=== PATIENT | female | born 1990 | race Caucasian/White ===

== ENCOUNTER 2019-09-30 16:23 | Emergency (ER) | payer OTHER ==
[~2019-09-30] VITALS: Ht 165.1 cm; Wt 109.5 kg
[2019-09-30] MEDS ORDERED: ALBU2.5V8 IH (17:50)
[2019-09-30] MEDS ORDERED: CEPH-264 PO (17:50)
[2019-09-30] MEDS ORDERED: PRED50TA PO (17:50)
--- NOTE | 2019-09-30 17:51 | PHYS DOC ---
Past History Past Medical History: Other Additional Past Medical Histor: intracranial hypertension Past Surgical History: Other Additional Past Surgical Histo: brain stent Alcohol Use: None Drug Use: None Adult General Chief Complaint Chief Complaint: COUGH HPI HPI Patient is a 29 -year-old female who presents with persistent cough for the past 2 weeks presents with rhinorrhea, coarse breath with increased rattling in chest past 3 days. Patient was evaluated by urgent care provider 5 days ago and diagnosed with upper respiratory tract infection and started on Tessalon Perles. Patient denies fever chills, nausea vomiting or sweats. No other acute symptoms or complaints. No history of asthma or chronic respiratory[] Review of Systems Review of Systems Review symptoms as per history of present illness. All other review symptoms are negative. All other systems were reviewed and found to be within normal limits, except as documented in this note. Allergies Allergies Allergies Coded Allergies Type Severity Reaction Last Updated Verified No Known Drug Allergies 09/30/19 No Physical Exam Physical Exam Constitutional: Well developed, well nourished, no acute distress, non-toxic appearance. [] HENT: Normocephalic, atraumatic, bilateral external ears normal, oropharynx moist, no oral exudates, nose normal. [] Eyes: PERRLA, EOMI, conjunctiva normal, no discharge. [] Neck: Normal range of motion, no tenderness, supple, no stridor. [] Cardiovascular:Heart rate regular rhythm, no murmur [] Lungs & Thorax: Bilateral breath sounds clear to auscultation [] Abdomen: Aspirations, musical rhonchi with rales in chest and occasional wheeze.. [] Skin: Warm, dry, no erythema, no rash. [] Back: No tenderness, tenderness. [] Extremities: No tenderness, no edema. [] Neurologic: Alert and oriented X 3, normal motor function, normal sensory function, no focal deficits noted. [] Psychologic: Affect normal, judgement normal, mood normal. [] Current Patient Data Vital Signs Vital Signs Date Time Temp Pulse Resp B/P (MAP) Pulse Ox O2 Delivery O2 Flow Rate FiO2 09/30/19 16:32 98.0 84 18 97 Room Air EKG EKG [] Radiology/Procedures Radiology/Procedures [] Course & Med Decision Making Course & Med Decision Making Pertinent Labs and Imaging studies reviewed. (See chart for details) [Exam consistent with walking pneumonia. Will place on antibiotics, steroids and inhaler and continue Tessalon Perles. Recommendations are to follow-up with PCP for reevaluation. Return precautions reviewed.] Wagner Disclaimer Wagner Disclaimer This electronic medical record was generated, in whole or in part, using a voice recognition dictation system. Departure Departure: Impression: Primary Impression: Walking pneumonia Disposition: HOME, SELF-CARE Condition: STABLE Referrals: PCP,UNKNOWN (PCP) Patient Instructions: Pneumonia, Adult, [id number] Additional Instructions: Please increase fluids, continue Tessalon Perles for cough. Take newly prescribed medications as directed. Follow-up with your PCP in 5-7 days for reevaluation. Return to the ED if new or worsening symptoms. Scripts Cephalexin (KEFLEX) 500 Mg Capsule 1 CAP PO TID for 7 Days, #21 CAP 0 Refills Prov: OMAR MARTIN DO 09/30/19 Albuterol Sulfate (PROAIR HFA INHALER) 8.5 Gm Hfa.aer.ad 2 PUFF IH PRN Q4-6HRS PRN for wheezing for 21 Days, #1 INHALER 0 Refills Prov: OMAR MARTIN DO 09/30/19 Prednisone (PREDNISONE) 50 Mg Tablet 1 TAB PO DAILY, #5 TAB Prov: OMAR MARTIN DO 09/30/19 OMAR MARTIN DO Sep 30, 2019 17:50
[2019-09-30 18:16] VITALS: BP 129/79
== END 2019-09-30 18:00 | disposition home or self-care (01) ==
LOC: ER 16:23
DX: J18.9 Pneumonia, unspecified organism (principal)
CPT/HCPCS: 99283

== ENCOUNTER 2019-10-10 13:18 | Emergency (ER) | payer OTHER ==
[~2019-10-10] VITALS: Ht 165.1 cm; Wt 108.9 kg
[2019-10-10 13:18] VITALS: BP 129/79
[~2019-10-10 13:18] MED LIST: ALBU2.5V8 IH; CEPH-264 PO; PRED50TA PO
[2019-10-10] MEDS ORDERED: ACETAMINOPHEN 500 MG TABLET PO ONE (14:15)
--- NOTE | 2019-10-10 14:24 | PHYS DOC ---
Past History Past Medical History: Pneumonia, Other Additional Past Medical Histor: intracranial hypertension Past Surgical History: (x2), Other Additional Past Surgical Histo: brain stent Smoking: Non-smoker Alcohol Use: None Drug Use: None Adult General Chief Complaint Chief Complaint: PELVIC PAIN HPI HPI Patient is a 29-year-old female presents with 2-3 weeks of waxing and waning pelvic pain. Left greater than right. Nothing makes it better or worse. She denies any vaginal bleeding or discharge. Denies any trauma. She is limited on pain medicine options due to relatively recent brain stent placed, she is on Plavix. She has been unable to get an appointment at [facility]. Symptoms are mild to moderate. Worse on the left side when compared to the right. She is sexually active with one partner, her . He has had a vasectomy. She has had 2 She has a history of this previously with possible ovarian cyst. She needed fertility treatments for her pregnancies, last being 6 years ago.[] Review of Systems Review of Systems Constitutional: Denies fever or chills [] Eyes: Denies change in visual acuity, redness, or eye pain [] HENT: Denies nasal congestion or sore throat [] Respiratory: Denies cough or shortness of breath [] Cardiovascular: No chest pain or palpitations[] GI: Denies abdominal pain, nausea, vomiting, bloody stools or diarrhea [] : Denies dysuria or hematuria, see history of present illness [] Musculoskeletal: Denies back pain or joint pain [] Integument: Denies rash or skin lesions [] Neurologic: Denies headache, focal weakness or sensory changes [] Endocrine: Denies polyuria or polydipsia [] All other systems were reviewed and found to be within normal limits, except as documented in this note. Allergies Allergies Allergies Coded Allergies Type Severity Reaction Last Updated Verified No Known Drug Allergies 09/30/19 No Physical Exam Physical Exam Constitutional: Well developed, well nourished, no acute distress, non-toxic appearance. [] HENT: Normocephalic, atraumatic, bilateral external ears normal, oropharynx moist, no oral exudates, nose normal. [] Eyes: PERRLA, EOMI, conjunctiva normal, no discharge. [] Neck: Normal range of motion, no tenderness, supple, no stridor. [] Cardiovascular:Heart rate regular rhythm, no murmur [] Lungs & Thorax: Bilateral breath sounds clear to auscultation [] Abdomen: Bowel sounds normal, soft, no tenderness, no masses, no pulsatile masses. Pelvic exam performed with food safety specialist: External genitalia, Heathcote's glands, urethra, and : Denies: No lesions, no blood, no abscess. Vaginal vault: physiologic discharge, no blood, no lacerations. Cervix: No cervical motion tenderness, no bleeding,[] Skin: Warm, dry, no erythema, no rash. [] Back: No tenderness, no CVA tenderness. [] Extremities: No tenderness, no cyanosis, no clubbing, ROM intact, no edema. [] Neurologic: Alert and oriented X 3, normal motor function, normal sensory function, no focal deficits noted. [] Psychologic: Affect normal, judgement normal, mood normal. [] Current Patient Data Lab Results Laboratory Tests Test 10/10/19 13:41 POC Urine HCG, Qualitative hcg negative (Negative) EKG EKG [] Radiology/Procedures Radiology/Procedures PROCEDURE: US PELVIS W/TV Examination: Ultrasound pelvis HISTORY: History of pelvic pain COMPARISON: None available FINDINGS: The uterus measures 9.4 x 6.8 x 4.2 cm. Endometrium measures 6.1 mm in thickness. The right ovary measures 2.2 x 2.6 x 2.8 cm. The left ovary measures 2.3 x 2.5 x 3.3 cm. Blood flow identified in the right and left ovaries. Follicles identified in the lateral left ovaries. IMPRESSION: Unremarkable exam.[] Course & Med Decision Making Course & Med Decision Making Pertinent Labs and Imaging studies reviewed. (See chart for details) Emergency department course: Patient arrived, was placed in bed, and tolerated exam well. Pelvic exam was performed with food safety specialist. He was transported to and from radiology with any complications. After return of the lab and imaging findings, these were discussed with the patient who voiced understanding. All questions were answered. She was discharged in improved condition. Medical decision making: There is no evidence of torsion, ectopic , urinary tract infection or pyelonephritis, nor other significant intra- abdominal/pelvic pathology at this time. No evidence of pelvic inflammatory disease.[] Dragon Disclaimer Dragon Disclaimer This electronic medical record was generated, in whole or in part, using a voice recognition dictation system. Departure Departure: Impression: Primary Impression: Pelvic pain Disposition: HOME, SELF-CARE Condition: IMPROVED Referrals: PCPHALEY (PCP) Patient Instructions: Pelvic Pain, Female Additional Instructions: Follow-up with your regular doctor in 2 days. Because you're on blood thinners, avoid anti-inflammatories like ibuprofen and Aleve. Take the pain medicine, as needed, as directed on the packaging. Return to the ER if worsening pain, unable to tolerate liquids, or any other concerns. Scripts Acetaminophen (TYLENOL) 325 Mg Tablet 1-2 TAB PO QID for PAIN, #60 TAB 0 Refills Prov: CHANG TAM DO 10/10/19 Tramadol Hcl (TRAMADOL HCL) 50 Mg Tablet 50 MG PO PRN Q6HRS PRN for PAIN, #20 TAB Prov: CHANG TAM DO 10/10/19 CHANG TAM DO Oct 10, 2019 14:24
[2019-10-10 14:26] LABS: BACTERIA,URINE FEW /HPF (0-FEW); BILIRUBIN,URINE NEG (NEG); CLARITY,URINE CLEAR; COLOR,URINE STRAW; GLUCOSE,URINE NEG (NEG); NITRITE,URINE NEG (NEG); RBC,URINE 0 /HPF (0-2); SQUAMOUS EPITHELIAL CELL,UR OCC /LPF; UROBILINOGEN,URINE 0.2 mg/dL (0.2 mg/dL)
[2019-10-10 14:33] LABS: BASO # 0.1 x10^3/uL (0.0-0.2); BASO % 1 % (0-3); EOS # 0.3 x10^3/uL (0.0-0.7); EOS % 4 % (0-3); HEMATOCRIT 41.2 % (36.0-47.0); HEMOGLOBIN 13.7 g/dL (12.0-15.5); LYMPH # 2.8 x10^3/uL (1.0-4.8); LYMPH % 36 % (24-48); MEAN CORPUSCULAR HEMOGLOBIN 28 pg (25-35); MEAN CORPUSCULAR HGB CONC 33 g/dL (31-37); MEAN CORPUSCULAR VOLUME 85 fL (79-100); MONO # 0.7 x10^3/uL (0.0-1.1); MONO % 9 % (0-9); NEUT % 51 % (31-73); PLATELET COUNT 318 x10^3/uL (140-400); RED BLOOD COUNT 4.84 x10^6/uL (3.50-5.40); RED CELL DISTRIBUTION WIDTH 13.5 % (11.5-14.5); WHITE BLOOD COUNT 7.8 x10^3/uL (4.0-11.0)
[2019-10-10 14:34] LABS: CALCIUM 9.1 mg/dL (8.5-10.1); CREATININE 0.8 mg/dL (0.6-1.0); GFR 85.4; POTASSIUM 4.2 mmol/L (3.5-5.1)
[2019-10-10 14:40] LABS: ALBUMIN 3.9 g/dL (3.4-5.0); ALBUMIN/GLOBULIN RATIO 1.2 (1.0-1.7); TOTAL BILIRUBIN 0.2 mg/dL (0.2-1.0); TOTAL PROTEIN 7.2 g/dL (6.4-8.2)
--- NOTE | 2019-10-10 15:28 | RAD ---
Examination: Ultrasound pelvis HISTORY: History of pelvic pain COMPARISON: None available FINDINGS: The uterus measures 9.4 x 6.8 x 4.2 cm. Endometrium measures 6.1 mm in thickness. The right ovary measures 2.2 x 2.6 x 2.8 cm. The left ovary measures 2.3 x 2.5 x 3.3 cm. Blood flow identified in the right and left ovaries. Follicles identified in the lateral left ovaries. IMPRESSION: Unremarkable exam. . Electronically signed by: Armin Hooker MD (10/10/2019 3:26 PM) [facility]
[2019-10-10] MEDS ORDERED: TRAM50TA PO (15:47)
[2019-10-10] MEDS ORDERED: ACET325T9 PO (15:47)
== END 2019-10-10 15:54 | disposition home or self-care (01) ==
LOC: ER 13:18
DX: R10.2 Pelvic and perineal pain (principal); Z98.890 Other specified postprocedural states
CPT/HCPCS: 36415; 76830; 76856; 80053; 81001; 81025; 85025; 87086; 87491; 87591; 99285; Q0111

== ENCOUNTER 2020-03-26 21:03 | Emergency (ER) | payer OTHER ==
[~2020-03-26] VITALS: Ht 165.1 cm; Wt 113.4 kg
[~2020-03-26 21:03] MED LIST changes: +ACET325T9 PO; +TRAM50TA PO
--- NOTE | 2020-03-26 21:06 | PHYS DOC ---
Past History Past Medical History: Pneumonia, UTI, Other Additional Past Medical Histor: intracranial hypertension Past Surgical History: , Other Additional Past Surgical Histo: brain stent- posterior veinous sinus Smoking: Non-smoker Alcohol Use: None Drug Use: None General Adult HPI: HPI: "..I got burning or discomfort when I urinate.. " " I think I may have a UTI..." Patient is a 29 year old female dependent who presents with above hx and complaints of dysuria past day. Patient denies any vaginal discharge. No history of STDs. Patient recently had period. had a vasectomy. No recent travel outside [facility]. 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 No history of trauma. No history of bad food. 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 Did receive a stent in May 2019 at which resolved the intracranial hypertension. Patient denies any history immunosuppression. Review of Systems: Review of Systems: Constitutional: Denies fever or chills Eyes: Denies change in visual acuity HENT: Denies nasal congestion or sore throat Respiratory: Denies cough or shortness of breath Cardiovascular: Denies chest pain or edema GI: Denies abdominal pain, nausea, vomiting, bloody stools or diarrhea : Complains of dysuria Musculoskeletal: Denies back pain or joint pain Integument: Denies rash Neurologic: Denies headache, focal weakness or sensory changes Endocrine: Denies polyuria or polydipsia Lymphatic: Denies swollen glands Psychiatric: Denies depression or anxiety Heart Score: Risk Factors: Risk Factors: DM, Current or recent (<one month) smoker, HTN, HLP, family history of CAD, obesity. Risk Scores: Score 0 - 3: 2.5% MACE over next 6 weeks - Discharge Home Score 4 - 6: 20.3% MACE over next 6 weeks - Admit for Clinical Observation Score 7 - 10: 72.7% MACE over next 6 weeks - Early Invasive Strategies Family History: Family History: Noncontributory Current Medications: Current Meds: See nursing for home meds Allergies: Allergies: Allergies Coded Allergies Type Severity Reaction Last Updated Verified No Known Drug Allergies 09/30/19 No Physical Exam: PE: Constitutional: Moderate acute distress, non-toxic appearance. [] HENT: Normocephalic, atraumatic, bilateral external ears normal, oropharynx moist, no oral exudates, nose normal. [] Eyes: PERRLA, EOMI, conjunctiva normal, no discharge. Glasses Neck: Normal range of motion, no tenderness, supple, no stridor. [] Cardiovascular:Heart rate regular rhythm, no murmur [] Lungs & Thorax: Bilateral breath sounds clear to auscultation [] Abdomen: Bowel sounds normal, soft, no tenderness, no masses, no pulsatile masses. Obese Skin: Warm, dry, no erythema, no rash. [] Back: No tenderness, no CVA tenderness. [] Extremities: No tenderness, no cyanosis, no clubbing, ROM intact, no edema. [] Neurologic: Alert and oriented X 3, normal motor function, normal sensory function, no focal deficits noted. [] Psychologic: Affect anxious judgement normal, mood normal. [] EKG: EKG: [] Radiology/Procedures: Radiology/Procedures: [] Course & Med Decision Making: Course & Med Decision Making Pertinent Labs and Imaging studies reviewed. (See chart for details) Patient push vitamin C drinks. The patient take Bactrim DS twice a day. Patient follow-up with urine cultures. Patient take Tylenol ibuprofen for pain. Impression: 1. Dysuria 2. UTI [] Dragon Disclaimer: Dragon Disclaimer: This electronic medical record was generated, in whole or in part, using a voice recognition dictation system. Departure Departure: Disposition: HOME/RESIDENCE PRIOR TO ADM Condition: STABLE Referrals: PCP,NO (PCP) Scripts Sulfamethoxazole/Trimethoprim (BACTRIM DS TABLET) 1 Each Tablet 1 TAB PO BID for dysuria for 7 Days, #14 TAB 0 Refills Prov: FERCHO PEDERSON MD 03/26/20 Justification of Admission: Justification of Admission: Justification of Admission Dx: N/A Dragon Disclaimer This chart was dictated in whole or in part using Voice Recognition software in a busy, high-work load, and often noisy Emergency Department environment. It may contain unintended and wholly unrecognized errors or omissions. FERCHO PEDERSON MD Mar 26, 2020 21:06
[2020-03-26 21:21] VITALS: BP 138/86
[2020-03-26 21:39] LABS: BILIRUBIN,URINE NEG (NEG); CLARITY,URINE TURBID; COLOR,URINE YELLOW; GLUCOSE,URINE NEG (NEG)
[2020-03-26] MEDS ORDERED: SULF1TAB24 PO (21:39)
[2020-03-26 21:40] LABS: NITRITE,URINE POS (NEG); UROBILINOGEN,URINE 0.2 mg/dL (0.2 mg/dL)
[2020-03-26 21:44] LABS: BARBITURATES NEG (NEG); BENZODIAZEPINES NEG (NEG); CANNABINOIDS NEG (NEG); COCAINE NEG (NEG); METHADONE NEG (NEG); OPIATES NEG (NEG); PHENCYCLIDINE NEG (NEG)
[2020-03-26 21:45] LABS: RBC,URINE TNTC /HPF (0-2)
[2020-03-26 21:46] LABS: BACTERIA,URINE MANY /HPF (0-FEW); SQUAMOUS EPITHELIAL CELL,UR FEW /LPF
[2020-03-26 21:49] LABS: AMPHETAMINE/METHAMPHETAMINE NEG (NEG)
[2020-03-26] MEDS ORDERED: PHENAZOPYRIDINE 200 MG TABLET. PO ONE (22:00)
[2020-03-26] MEDS ORDERED: IBUPROFEN 600 MG TABLET. PO ONE (22:00)
[2020-03-26] MEDS ORDERED: SMZ/TMP 800/160MG TABLET. PO ONE (22:00)
== END 2020-03-26 22:00 | disposition home or self-care (01) ==
LOC: ER 21:03
DX: N39.0 Urinary tract infection, site not specified (principal); R30.0 Dysuria; I10 Essential (primary) hypertension; Z98.890 Other specified postprocedural states
CPT/HCPCS: 36415; 80307; 81001; 81025; 87086; 99284

== ENCOUNTER 2020-04-06 17:02 | Emergency (ER) | payer OTHER ==
[~2020-04-06] VITALS: Ht 165.1 cm; Wt 113.4 kg
[~2020-04-06 17:02] MED LIST changes: +SULF1TAB24 PO
[2020-04-06 17:06] VITALS: BP 132/83
[2020-04-06] MEDS ORDERED: CEPH-264 PO (17:44)
--- NOTE | 2020-04-06 17:44 | PHYS DOC ---
Past History Past Medical History: Pneumonia, UTI, Other Additional Past Medical Histor: intracranial hypertension Past Surgical History: , Other Additional Past Surgical Histo: brain stent- posterior veinous sinus Smoking: Non-smoker Alcohol Use: None Drug Use: None General Adult EDM: Chief Complaint: PAIN ON URINATION HPI: HPI: 29 year old female presents with report of dysuria and urinary frequency. Samuel had been seen originally in the ED her at [facility] on 03/26/20 for same and diagnosed with UTI and started on 1 week of Bactrim for which patient completed course. Reports symptoms returned after discontinuation of the medication. Samuel has had a similar occurrence of UTI in which she required 2 courses of antibiotic for symptoms to resolve. Denies trauma. Reports she has started to have some back pain. Denies nausea or vomiting. Denies trauma. Denies history of kidney stones. Denies . Reports she is currently sexually active. Denies vaginal discharge. Review of Systems: Review of Systems: Constitutional: Denies fever or chills Eyes: Denies change in visual acuity, redness, or eye pain HENT: Denies nasal congestion or sore throat Respiratory: Denies cough or shortness of breath Cardiovascular: Denies chest pain or palpitations GI: Reports suprapubic abdominal pain; denies nausea, vomiting, or diarrhea : Reports dysuria and urinary frequency Musculoskeletal: Reports back pain; denies joint pain Integument: Denies rash or skin lesions Neurologic: Denies headache, focal weakness or sensory changes Complete systems were reviewed and found to be within normal limits, except as documented in this note. Allergies: Allergies: Allergies Coded Allergies Type Severity Reaction Last Updated Verified No Known Drug Allergies 09/30/19 No Physical Exam: PE: Constitutional: Well developed, well nourished, no acute distress, non-toxic appearance HENT: Normocephalic, atraumatic Eyes: Conjunctiva normal, no discharge Neck: Normal range of motion, supple Lungs & Thorax: Equal chest rise and fall, no respiratory distress Abdomen: Soft, no tenderness, no guarding/rebound tenderness/distention Skin: Warm, dry, no erythema, no rash Back: No tenderness, no CVA tenderness Extremities: No tenderness, ROM intact, no edema Neurologic: Alert and oriented X 3, no focal deficits noted Psychologic: Affect normal, judgement normal Current Patient Data: Labs: Laboratory Tests Test 04/06/20 17:31 POC Urine HCG, Qualitative hcg negative (Negative) Vital Signs: Vital Signs Date Time Temp Pulse Resp B/P (MAP) Pulse Ox O2 Delivery O2 Flow Rate FiO2 04/06/20 17:06 98.3 94 16 132/83 (99) 96 Room Air EKG: EKG: [] Radiology/Procedures: Radiology/Procedures: [] Course & Med Decision Making: Course & Med Decision Making Pertinent Lab studies reviewed. (See chart for details) Patient presents with HPI and physical exam concerning for reoccurrence of UTI. Patient seen previously on 03/26/20 and dx with UTI and placed on 7 day course of Bactrim. UCX noted E.coli with sensativity to Bactrim. Will change antibiotic selection. Keflex therefore initiated. Await new UCX. Patient also educated on pelvic rest until completion of antibiotic therapy. Patient stable for discharge home with outpatient follow-up with PCP. Discussed findings and plan with patient, who acknowledges understanding and agreement. Wagner Disclaimer: Wagner Disclaimer: This electronic medical record was generated, in whole or in part, using a voice recognition dictation system. Departure Departure: Impression: Primary Impression: Urinary tract infection Qualified Codes: N30.01 - Acute cystitis with hematuria Disposition: HOME/RESIDENCE PRIOR TO ADM Condition: STABLE Referrals: ABNER BIANCHI DO (PCP) Patient Instructions: Urinary Tract Infection, [id number] Scripts Cephalexin (KEFLEX) 500 Mg Capsule 1 CAP PO TID for UTI for 7 Days, #21 CAP 0 Refills Prov: WILL STARR DO 04/06/20 Justification of Admission: Justification of Admission: Justification of Admission Dx: N/A WILL STARR DO Apr 06, 2020 17:44
[2020-04-06 17:47] LABS: BILIRUBIN,URINE NEG (NEG); CLARITY,URINE CLEAR; COLOR,URINE YELLOW; GLUCOSE,URINE NEG (NEG); NITRITE,URINE POS (NEG); UROBILINOGEN,URINE 0.2 mg/dL (0.2 mg/dL)
[2020-04-06 17:48] LABS: BACTERIA,URINE FEW /HPF (0-FEW); SQUAMOUS EPITHELIAL CELL,UR FEW /LPF
[2020-04-06] MEDS ORDERED: CEPHALEXIN 250 MG CAPSULE PO ONE (18:30)
== END 2020-04-06 17:56 | disposition home or self-care (01) ==
LOC: ER 17:02
DX: N30.01 Acute cystitis with hematuria (principal); I10 Essential (primary) hypertension; Z87.440 Personal history of urinary (tract) infections; Z98.890 Other specified postprocedural states
CPT/HCPCS: 81001; 81025; 87086; 99283

== ENCOUNTER 2020-07-30 13:21 | Emergency (ER) | payer OTHER ==
[~2020-07-30] VITALS: Ht 165.1 cm; Wt 113.4 kg
[2020-07-30 13:40] VITALS: BP 136/81
--- NOTE | 2020-07-30 14:04 | PHYS DOC ---
Past History Past Medical History: Pneumonia, UTI, Other Additional Past Medical Histor: intracranial hypertension Past Surgical History: , Other Additional Past Surgical Histo: brain stent- posterior veinous sinus Smoking: Non-smoker Alcohol Use: None Drug Use: None General Adult EDM: Chief Complaint: ABDOMINAL PAIN HPI: HPI: 29-year-old female presents with vaginal discharge, lower abdominal discomfort and some mild low back pain. Patient went to urgent care couple days ago put her on antibiotics for UTI. Patient presents today because now she has vaginal discharge with change in odor and she is concerned about bacterial vaginosis. She is sexually active. She is not really worried about an STD. She denies vaginal itching. She denies fever or chills. She has no other complaints at this time. Review of Systems: Review of Systems: Constitutional: Denies fever or chills Eyes: Denies change in visual acuity HENT: Denies nasal congestion or sore throat Respiratory: Denies cough or shortness of breath Cardiovascular: Denies chest pain or edema GI: Abdominal pain. Denies nausea, vomiting, bloody stools or diarrhea : Vaginal discharge Musculoskeletal: Denies back pain or joint pain Integument: Denies rash Neurologic: Denies headache, focal weakness or sensory changes Endocrine: Denies polyuria or polydipsia Lymphatic: Denies swollen glands Psychiatric: Denies depression or anxiety Heart Score: Risk Factors: Risk Factors: DM, Current or recent (<one month) smoker, HTN, HLP, family history of CAD, obesity. Risk Scores: Score 0 - 3: 2.5% MACE over next 6 weeks - Discharge Home Score 4 - 6: 20.3% MACE over next 6 weeks - Admit for Clinical Observation Score 7 - 10: 72.7% MACE over next 6 weeks - Early Invasive Strategies Allergies: Allergies: Allergies Coded Allergies Type Severity Reaction Last Updated Verified No Known Drug Allergies 09/30/19 No Physical Exam: PE: Constitutional: Well developed, well nourished, morbidly obese, no acute distress, non-toxic appearance. [] HENT: Normocephalic, atraumatic, bilateral external ears normal, oropharynx moist, no oral exudates, nose normal. [] Eyes: PERRLA, EOMI, conjunctiva normal, no discharge. [] Neck: Normal range of motion, no tenderness, supple, no stridor. [] Cardiovascular:Heart rate regular rhythm, no murmur [] Lungs & Thorax: Bilateral breath sounds clear to auscultation [] Abdomen: Bowel sounds normal, soft, no tenderness, no masses, no pulsatile masses. [] Skin: Warm, dry, no erythema, no rash. [] Back: No tenderness, no CVA tenderness. [] Extremities: No tenderness, no cyanosis, no clubbing, ROM intact, no edema. [] Neurologic: Alert and oriented X 3, normal motor function, normal sensory function, no focal deficits noted. [] Psychologic: Affect normal, judgement normal, mood normal. : Normal external genital exam, no pain with exam, moderate thickness white discharge. [] Current Patient Data: Labs: Laboratory Tests Test 07/30/20 13:54 POC Urine HCG, Qualitative hcg negative (Negative) Vital Signs: Vital Signs Date Time Temp Pulse Resp B/P (MAP) Pulse Ox O2 Delivery O2 Flow Rate FiO2 07/30/20 13:40 98.1 72 18 136/81 (99) 98 EKG: EKG: [] Radiology/Procedures: Radiology/Procedures: [] Course & Med Decision Making: Course & Med Decision Making Pertinent Labs and Imaging studies reviewed. (See chart for details) The patient's wet prep is negative. Her urinalysis shows positive nitrate but few white blood cells and no bacteria. She is only had 2 days of antibiotics so far. It appears to be working. I will not change her treatment at this point. Her GC chlamydia is pending and we will let her know if it is positive. She is stable for discharge at this time. [] Wagner Disclaimer: Wagner Disclaimer: This electronic medical record was generated, in whole or in part, using a voice recognition dictation system. Departure Departure: Impression: Primary Impression: Abdominal pain Qualified Codes: R10.30 - Lower abdominal pain, unspecified Disposition: 01 DC HOME SELF CARE/HOMELESS Condition: STABLE Referrals: ABNER BIANCHI DO (PCP) Patient Instructions: Abdominal Pain, Women OMAR JOHNSON DO Jul 30, 2020 14:04
[2020-07-30 14:05] LABS: BACTERIA,URINE 0 /HPF (0-FEW); BILIRUBIN,URINE NEG (NEG); CLARITY,URINE CLEAR; COLOR,URINE YELLOW; GLUCOSE,URINE NEG (NEG); NITRITE,URINE POS (NEG); RBC,URINE 0 /HPF (0-2); SQUAMOUS EPITHELIAL CELL,UR FEW /LPF; UROBILINOGEN,URINE 0.2 mg/dL (0.2 mg/dL); WBC,URINE OCC /HPF (0-4)
== END 2020-07-30 14:48 | disposition home or self-care (01) ==
LOC: ER 13:21
DX: R10.30 Lower abdominal pain, unspecified (principal); N89.8 Other specified noninflammatory disorders of vagina; M54.5 Low back pain; G93.2 Benign intracranial hypertension; Z87.440 Personal history of urinary (tract) infections
CPT/HCPCS: 81001; 81025; 87086; 87491; 87591; 99283; Q0111

== ENCOUNTER 2020-10-24 09:12 | Emergency (ER) | payer OTHER ==
[~2020-10-24] VITALS: Ht 165.1 cm; Wt 102.8 kg
--- NOTE | 2020-10-24 10:28 | PHYS DOC ---
Past History Past Medical History: Pneumonia, UTI, Other Additional Past Medical Histor: intracranial hypertension Past Surgical History: , Other Additional Past Surgical Histo: brain stent- posterior veinous sinus Smoking: Non-smoker Alcohol Use: None Drug Use: None General Adult EDM: Chief Complaint: ABDOMINAL PAIN HPI: HPI: Patient is a 22-year-old female coming in for abdominal pain. States she has had left upper quadrant abdominal pain for the past 4 days. States the pain is intermittent and she thought it was "gas". Became concerned and came to emergency department when the pain started to move midline and a little bit to the right side. Denies any nausea, vomiting, diarrhea. Denies any constipation or straining with stools. Last bowel was this morning and was "normal, describes it is smooth. States she has had some bad taste in her mouth and has had a history of reflux. Denies any change in urination. No significant medical history. Has a history of a "brain stent" for idiopathic cranial hypertension. And 2 C-sections. Review of Systems: Review of Systems: All other systems within normal limits except for as noted in the HPI Allergies: Allergies: Allergies Coded Allergies Type Severity Reaction Last Updated Verified No Known Drug Allergies 09/30/19 No Physical Exam: PE: Constitutional: Well developed, well nourished, no acute distress, non-toxic appearance. [] HENT: Normocephalic, atraumatic, bilateral external ears normal, nose normal. [] Eyes: PERRLA, conjunctiva normal, no discharge. [] Neck: No rigidity, supple, no stridor. [] Cardiovascular: Regular rate and rhythm, brisk cap refill [] Lungs & Thorax: Non labored symmetric respirations, no tachypnea or respiratory distress [] Abdomen: Soft, nondistended, mild tenderness in left upper quadrant and epigastric area, negative Peralta's, negative for rebound or guarding. No McBurney's point tenderness Skin: Warm, dry, no erythema, no rash. [] Extremities: No deformities, range of motion grossly intact, no lower extremity edema [] Neurologic: Alert and oriented X 3, no focal deficits noted. [] Psychologic: Affect normal, judgement normal, mood normal. [] Current Patient Data: Labs: Laboratory Tests Test 10/24/20 10:19 POC Urine HCG, Qualitative hcg negative (Negative) Vital Signs: Vital Signs Date Time Temp Pulse Resp B/P (MAP) Pulse Ox O2 Delivery O2 Flow Rate FiO2 10/24/20 09:39 81 16 136/72 (93) 99 Room Air 10/24/20 09:39 97.8 EKG: EKG: [] Radiology/Procedures: Radiology/Procedures: [] Heart Score: Risk Factors: Risk Factors: DM, Current or recent (<one month) smoker, HTN, HLP, family hi story of CAD, obesity. Risk Scores: Score 0 - 3: 2.5% MACE over next 6 weeks - Discharge Home Score 4 - 6: 20.3% MACE over next 6 weeks - Admit for Clinical Observation Score 7 - 10: 72.7% MACE over next 6 weeks - Early Invasive Strategies Course & Med Decision Making: Course & Med Decision Making Labs unremarkable and pain completely relieved with GI cocktail. Discussed with patient's symptoms of gastritis and return precautions symptoms are worsening in other parts of abdomen. Discussed we will treat and have her follow-up with primary care in 1 month to assess symptoms and decide if H. pylori testing would be advisable. [] Dragon Disclaimer: Dragon Disclaimer: This electronic medical record was generated, in whole or in part, using a voice recognition dictation system. Departure Departure: Impression: Primary Impression: Gastritis Disposition: 01 DC HOME SELF CARE/HOMELESS Condition: IMPROVED Referrals: ABNER BIANCHI DO (PCP) Patient Instructions: Diet for Gastroesophageal Reflux Disease, Adult Additional Instructions: Take sucralfate as needed but 2 hours after or prior any other medications. Take famotidine twice daily. Scripts Sucralfate (SUCRALFATE) 1 Gm Tablet 1 TAB PO TID PRN for GI SYMPTOMS for 30 Days, #60 TAB 11 Refills Prov: IVAN LOMAX MD 10/24/20 Famotidine (FAMOTIDINE) 20 Mg Tablet 1 TAB PO BID for antacid for 30 Days, #60 TAB 5 Refills Prov: IVAN LOMAX MD 10/24/20 IVAN LOMAX MD Oct 24, 2020 10:27
[2020-10-24] MEDS ORDERED: LIDO:MAALOX 1:1 20 ML SINGLE DOSE. PO ONE (10:30)
[2020-10-24 10:34] LABS: BASO % 1 % (0-3); EOS # 0.1 x10^3/uL (0.0-0.7); EOS % 2 % (0-3); HEMATOCRIT 38.6 % (36.0-47.0); LYMPH # 1.9 x10^3/uL (1.0-4.8); LYMPH % 35 % (24-48); MEAN CORPUSCULAR HEMOGLOBIN 28 pg (25-35); MEAN CORPUSCULAR HGB CONC 34 g/dL (31-37); MEAN CORPUSCULAR VOLUME 84 fL (79-100); MONO # 0.4 x10^3/uL (0.0-1.1); MONO % 7 % (0-9); NEUT # 2.9 x10^3uL (1.8-7.7); NEUT % 55 % (31-73); PLATELET COUNT 300 x10^3/uL (140-400); RED CELL DISTRIBUTION WIDTH 13.8 % (11.5-14.5); WHITE BLOOD COUNT 5.3 x10^3/uL (4.0-11.0)
[2020-10-24 10:38] LABS: CALCIUM 9.5 mg/dL (8.5-10.1); CREATININE 0.8 mg/dL (0.6-1.0); GFR 84.8; POTASSIUM 3.8 mmol/L (3.5-5.1)
[2020-10-24 10:43] LABS: ALBUMIN 4.2 g/dL (3.4-5.0); ALBUMIN/GLOBULIN RATIO 1.1 (1.0-1.7); TOTAL BILIRUBIN 0.3 mg/dL (0.2-1.0); TOTAL PROTEIN 8.2 g/dL (6.4-8.2)
[2020-10-24 11:01] LABS: BILIRUBIN,URINE NEG (NEG); CLARITY,URINE HAZY; COLOR,URINE STRAW; GLUCOSE,URINE NEG (NEG)
[2020-10-24 11:02] LABS: BACTERIA,URINE FEW /HPF (0-FEW); NITRITE,URINE NEG (NEG); SQUAMOUS EPITHELIAL CELL,UR OCC /LPF; UROBILINOGEN,URINE 0.2 mg/dL (0.2 mg/dL)
[2020-10-24 11:55] VITALS: BP 134/70
[2020-10-24] MEDS ORDERED: FAMO20TA5 PO (12:06)
[2020-10-24] MEDS ORDERED: SUCR1TAB PO (12:06)
== END 2020-10-24 12:20 | disposition home or self-care (01) ==
LOC: ER 09:12
DX: K29.70 Gastritis, unspecified, without bleeding (principal); I10 Essential (primary) hypertension; Z87.440 Personal history of urinary (tract) infections; Z98.890 Other specified postprocedural states
CPT/HCPCS: 36415; 80053; 81001; 81025; 83690; 84484; 85025; 87086; 99283

== ENCOUNTER 2020-11-04 10:52 | Emergency (ER) | payer OTHER ==
[~2020-11-04] VITALS: Ht 165.1 cm; Wt 106.0 kg
[~2020-11-04 10:52] MED LIST changes: +FAMO20TA5 PO; +SUCR1TAB PO
[2020-11-04] MEDS ORDERED: LIDO:MAALOX 1:1 20 ML SINGLE DOSE. PO ONE (11:45)
[2020-11-04] MEDS ORDERED: OMEP40CA45 PO (12:05)
--- NOTE | 2020-11-04 12:06 | PHYS DOC ---
Past History Past Medical History: Pneumonia, UTI, Other Additional Past Medical Histor: intracranial hypertension, anti KPB, Past Surgical History: , Other Additional Past Surgical Histo: brain stent- posterior veinous sinus Smoking: Non-smoker Alcohol Use: None Drug Use: None General Adult EDM: Chief Complaint: ABDOMINAL PAIN HPI: HPI: Patient is a 30-year-old female return to emergency department for epigastric pain. Patient was seen 10 days ago and diagnosed with gastritis. Patient states she has been taking her medication as she had some improvement but has not followed up with primary care. Patient states that she is anxious and afraid to eat because she is afraid of getting ulcer, is also nervous that she is going out of town tomorrow. Patient states no symptoms and improvement of previous symptoms with taking famotidine and Carafate. Has been taking Carafate once a day. Also has been having some constipation with small hard bowel movements. Denies any fever, cough, diarrhea. Review of Systems: Review of Systems: All other systems within normal limits except for as noted in the HPI Current Medications: Current Meds: Current Medications Medications (Trade) Dose Ordered Sig/Kailyn Start Time Stop Time Status Last Admin Dose Admin Multi-Ingredient Mouthwash/Gargle (Gi Cocktail) 20 ml 1X ONCE 11/04/20 11:45 11/04/20 11:59 DC Allergies: Allergies: Allergies Coded Allergies Type Severity Reaction Last Updated Verified No Known Drug Allergies 11/04/20 No Physical Exam: PE: Constitutional: Well developed, well nourished, no acute distress, non-toxic appearance. [] HENT: Normocephalic, atraumatic, bilateral external ears normal, nose normal. [] Eyes: PERRLA, conjunctiva normal, no discharge. [] Neck: No rigidity, supple, no stridor. [] Cardiovascular: Regular rate and rhythm, brisk cap refill [] Lungs & Thorax: Non labored symmetric respirations, no tachypnea or respiratory distress [] Abdomen: Soft, nondistended, mild epigastric tenderness, no guarding or rebound. Skin: Warm, dry, no erythema, no rash. [] Extremities: No deformities, range of motion grossly intact, no lower extremity edema [] Neurologic: Alert and oriented X 3, no focal deficits noted. [] Psychologic: Affect normal, judgement normal, mood normal. [] Current Patient Data: Labs: Laboratory Tests Test 11/04/20 11:26 POC Urine HCG, Qualitative hcg negative (Negative) Vital Signs: Vital Signs Date Time Temp Pulse Resp B/P (MAP) Pulse Ox O2 Delivery O2 Flow Rate FiO2 11/04/20 10:57 98.1 96 16 123/80 (94) 99 Room Air EKG: EKG: [] Radiology/Procedures: Radiology/Procedures: [] Heart Score: Risk Factors: Risk Factors: DM, Current or recent (<one month) smoker, HTN, HLP, family history of CAD, obesity. Risk Scores: Score 0 - 3: 2.5% MACE over next 6 weeks - Discharge Home Score 4 - 6: 20.3% MACE over next 6 weeks - Admit for Clinical Observation Score 7 - 10: 72.7% MACE over next 6 weeks - Early Invasive Strategies Course & Med Decision Making: Course & Med Decision Making Counseled patient on diet changes, relieving stress and increasing food intake. We will change famotidine to omeprazole and encouraged to take sucralfate 3 times a day. [] Dragon Disclaimer: Dragon Disclaimer: This electronic medical record was generated, in whole or in part, using a voice recognition dictation system. Departure Departure: Impression: Primary Impression: Gastritis Disposition: 01 DC HOME SELF CARE/HOMELESS Condition: STABLE Referrals: ABNER BIANCHI DO (PCP) Patient Instructions: Gastritis, Adult Scripts Omeprazole (OMEPRAZOLE) 40 Mg Capsule.dr 1 CAP PO DAILY for antacid for 30 Days, #30 CAP 3 Refills Prov: IVAN LOMAX MD 11/04/20 IVAN LOMAX MD Nov 04, 2020 12:06
[2020-11-04 12:40] VITALS: BP 113/63
== END 2020-11-04 12:45 | disposition home or self-care (01) ==
LOC: ER 10:52
DX: K29.70 Gastritis, unspecified, without bleeding (principal); K59.00 Constipation, unspecified; Z87.440 Personal history of urinary (tract) infections; Z98.890 Other specified postprocedural states
CPT/HCPCS: 81025; 99283

== ENCOUNTER 2020-12-04 15:58 | Emergency (ER) | payer OTHER ==
[~2020-12-04] VITALS: Ht 165.1 cm; Wt 106.0 kg
[~2020-12-04 15:58] MED LIST changes: +OMEP40CA45 PO
[2020-12-04] MEDS ORDERED: PANTOPRAZOLE IV 40 MG VIAL. IVP ONE (16:45)
[2020-12-04] MEDS ORDERED: FAMOTIDINE 20 MG/2 ML VIAL IVP ONE (16:45)
[2020-12-04] MEDS ORDERED: IV NORMAL SALINE 1,000ML 1,000 ML IV SCH (16:45)
--- NOTE | 2020-12-04 16:57 | RAD ---
Study: XR ABDOMEN 1V Indication: Upper abdominal pain. Comparison: None. Findings: Nonobstructive bowel gas pattern. Mild amount of well-formed stool within the colon. Small focus of i ncreased density projecting at the mid to upper aspect of the left abdomen. Impression: 1. Nonobstructive bowel gas pattern. Mild colonic stool burden. 2. Small, rounded focus of increased density projecting at the mid to upper left abdomen. The locatio n is indeterminant but a small nephrolithiasis is possible. Electronically signed by: ROBBY CORONADO MD (12/04/2020 4:54 PM) [id number]
[2020-12-04 17:05] LABS: BASO % 0 % (0-3); EOS # 0.1 x10^3/uL (0.0-0.7); EOS % 1 % (0-3); HEMOGLOBIN 12.6 g/dL (12.0-15.5); LYMPH # 2.3 x10^3/uL (1.0-4.8); LYMPH % 21 % (24-48); MEAN CORPUSCULAR HEMOGLOBIN 28 pg (25-35); MEAN CORPUSCULAR HGB CONC 32 g/dL (31-37); MEAN CORPUSCULAR VOLUME 85 fL (79-100); MONO # 0.6 x10^3/uL (0.0-1.1); MONO % 5 % (0-9); NEUT # 7.6 x10^3uL (1.8-7.7); NEUT % 72 % (31-73); PLATELET COUNT 324 x10^3/uL (140-400); RED BLOOD COUNT 4.57 x10^6/uL (3.50-5.40); RED CELL DISTRIBUTION WIDTH 13.7 % (11.5-14.5); WHITE BLOOD COUNT 10.6 x10^3/uL (4.0-11.0)
[2020-12-04 17:18] LABS: BARBITURATES NEG (NEG); BENZODIAZEPINES NEG (NEG); CANNABINOIDS NEG (NEG); COCAINE NEG (NEG); METHADONE NEG (NEG); OPIATES NEG (NEG); PHENCYCLIDINE NEG (NEG)
[2020-12-04 17:19] LABS: CALCIUM 9.3 mg/dL (8.5-10.1); CREATININE 0.7 mg/dL (0.6-1.0); GFR 98.9; POTASSIUM 3.5 mmol/L (3.5-5.1)
[2020-12-04 17:20] LABS: AMPHETAMINE/METHAMPHETAMINE NEG (NEG)
--- NOTE | 2020-12-04 17:20 | PHYS DOC ---
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 Patient was seen here in the ED October 24 and for the same symptoms, no relief with Pepcid and omeprazole. Takes ASA daily 2/2 csf shunt. LMP was 2 weeks ago. Pt starts crying, is "fedup," cannot see GI until December. No FH autoimmune disorders/lupus. Normal brown BM this am. (MICAELA BROOKS DO) Review of Systems: Review of Systems: Constitutional: Denies fever or chills Eyes: Denies change in visual acuity HENT: Denies nasal congestion or sore throat Respiratory: Denies cough or shortness of breath or hemoptysis Cardiovascular: Denies chest tightness, syncope or edema GI: Denies nausea, vomiting, bloody stools or diarrhea : Denies dysuria Musculoskeletal: Denies back pain or joint pain Integument: Denies rash Neurologic: Denies headache, focal weakness or sensory changes Endocrine: Denies polyuria or polydipsia Lymphatic: Denies swollen glands Psychiatric: Denies depression or anxiety (MICAELA BROOKS DO) Current Medications: Current Meds: Current Medications Medications (Trade) Dose Ordered Sig/Kailyn Start Time Stop Time Status Last Admin Dose Admin Famotidine (Pepcid Vial) 20 mg 1X ONCE 12/04/20 16:45 12/04/20 16:46 DC Lorazepam (Ativan Inj) 0.5 mg 1X ONCE 12/04/20 16:45 12/04/20 16:47 DC Pantoprazole Sodium (Protonix Vial) 40 mg 1X ONCE 12/04/20 16:45 12/04/20 16:47 DC Sodium Chloride 1,000 ml @ 1,000 mls/hr Q1H 12/04/20 16:45 12/04/20 17:44 (MICAELA BROOKS DO) Allergies: Allergies: Allergies Coded Allergies Type Severity Reaction Last Updated Verified No Known Drug Allergies 12/04/20 No (MICAELA BROOKS DO) Physical Exam: PE: Constitutional: Well developed, well nourished, no acute distress, non-toxic appearance. HENT: Normocephalic, atraumatic, Eyes: EOMI, conjunctiva normal, no discharge. Neck: Normal range of motion, supple, Cardiovascular: S1/2 present, regular rhythm Lungs & Thorax: Speaking in full sentences, bilateral equal chest rise, no tachypnea or increased work of breathing Abdomen: soft, no reproducible tenderness, "band like" pain over epigastric region/ruq/luq, no peritonitis or guarding Skin: Warm, dry, no erythema, no rash. [] Back: No midline tenderness, no CVA tenderness. [] Extremities: No tenderness, no cyanosis, no lower extremity edema Neurologic: Alert and oriented X 3, normal motor function, normal sensory function, no focal deficits noted. [] Psychologic: Affect normal, judgement normal, mood normal. [] (MICAELA BROOKS DO) Current Patient Data: Labs: Laboratory Tests Test 12/04/20 16:43 POC Urine HCG, Qualitative hcg negative (Negative) Vital Signs: Vital Signs Date Time Temp Pulse Resp B/P (MAP) Pulse Ox O2 Delivery O2 Flow Rate FiO2 12/04/20 16:06 98.3 97 18 124/72 (89) 100 Room Air (MICAELA BROOKS DO) EKG: EKG: [] (MICAELA BROOKS DO) Radiology/Procedures: Radiology/Procedures: IMAGING REPORT Signed PATIENT: DEZ MEHTA ACCOUNT: [id number] : 1990 LOCATION: ER AGE: 30 SEX: F EXAM STATUS: REG ER ORD. PHYSICIAN: MICAELA BROOKS DO REASON: upper abd pain PROCEDURE: KUB Study: XR ABDOMEN 1V Indication: Upper abdominal pain. Comparison: None. Findings: Nonobstructive bowel gas pattern. Mild amount of well-formed stool within the colon. Small focus of increased density projecting at the mid to upper aspect of the left abdomen. Impression: 1. Nonobstructive bowel gas pattern. Mild colonic stool burden. 2. Small, rounded focus of increased density projecting at the mid to upper left abdomen. The location is indeterminant but a small nephrolithiasis is possible. Electronically signed by: ROBBY CORONADO MD (12/04/2020 4:54 PM) [id number] DICTATED AND SIGNED BY: ROBBY CORONADO MD DATE: 12/04/201651 CC: ABNER BIANCHI DO; MICAELA BROOKS DO ~MTH0 0 (MICAELA BROOKS DO) Heart Score: Risk Factors: Risk Factors: DM, Current or recent (<one month) smoker, HTN, HLP, family history of CAD, obesity. Risk Scores: Score 0 - 3: 2.5% MACE over next 6 weeks - Discharge Home Score 4 - 6: 20.3% MACE over next 6 weeks - Admit for Clinical Observation Score 7 - 10: 72.7% MACE over next 6 weeks - Early Invasive Strategies (MICAELA BROOKS DO) Course & Med Decision Making: Course & Med Decision Making Pertinent Labs and Imaging studies reviewed. (See chart for details) Labs, urinalysis and KUB completed-possible left kidney stone on KUB. CT abdom en pelvis pending. Due to shift change patient was signed out to Oncoming physician Dr. Collins for further management/disposition. Suspect DC home with Reglan and GI referral. (MICAELA BROOKS DO) Course & Med Decision Making Patient is a 30-year-old female who presented with abdominal pain. Vital signs not concerning after time in the ED. Patient feeling better. laboratory analysis normal. CT with probable small ovarian cyst and renal calculi nonobstructing. Discussed all findings with patient and advised to follow-up with primary care physician first thing in the morning to set up a follow-up visit as soon as she can. Advised to come back to the ED with new or concerning symptoms. Patient grateful, verbalized understanding and agreed with plan of discharge. (ALBER COLLINS MD) Dragon Disclaimer: Dragon Disclaimer: This electronic medical record was generated, in whole or in part, using a voice recognition dictation system. (MICAELA BROOKS DO) Departure Departure: Referrals: ABNER BIANCHI DO (PCP) MICAELA BROOKS DO Dec 04, 2020 17:20 ALBER COLLINS MD Dec 04, 2020 18:55
[2020-12-04 17:26] LABS: DIRECT BILIRUBIN 0.1 mg/dL (0.0-0.2); TOTAL BILIRUBIN 0.4 mg/dL (0.2-1.0); TOTAL PROTEIN 7.8 g/dL (6.4-8.2)
[2020-12-04 17:26] LABS: CLARITY,URINE CLEAR; COLOR,URINE COLORLESS
[2020-12-04 17:27] LABS: BACTERIA,URINE 0 /HPF (0-FEW); BILIRUBIN,URINE NEG (NEG); GLUCOSE,URINE NEG (NEG); NITRITE,URINE NEG (NEG); RBC,URINE 0 /HPF (0-2); SQUAMOUS EPITHELIAL CELL,UR MOD /LPF; UROBILINOGEN,URINE 0.2 mg/dL (0.2 mg/dL); WBC,URINE 0 /HPF (0-4)
[2020-12-04] MEDS ORDERED: IOHEXOL 300 MG/ML 75 ML VIAL. IV ONE (17:45)
--- NOTE | 2020-12-04 18:04 | EKG ---
[address] [address] Test Date: 2020-12-04 Test Time: 17:32:30 Pat Name: DEZ MEHTA Department: Room: Gender: F Transport Conductor: ZEE : 1990 Requested By: MICAELA BROOKS Order Number: [id number] Reading MD: Measurements Intervals [place] Rate: 74 P: 10 IA: 162 QRS: -11 QRSD: 88 T: 0 QT: 398 QTc: 442 Interpretive Statements SINUS RHYTHM LEFTWARD AXIS OTHERWISE NORMAL ECG RI6.02 No previous ECG available for comparison
--- NOTE | 2020-12-04 18:18 | RAD ---
PQRS Compliance Statement: One or more of the following individualized dose reduction techniques were utilized for this examinat ion: 1. Automated exposure control 2. Adjustment of the mA and/or kV according to patient size 3. Use of iterative reconstruction technique CT ABDOMEN+PELVIS W Clinical Indication: Reason: up[per abd pain / Comparison: None. Technique: Helical CT imaging of the abdomen and pelvis is performed after 61 cc of Omnipaque 300 IV contrast. Oral contrast not administered. Findings: The lung bases are clear. Cardiac size normal. The liver, gallbladder, spleen, pancreas, adrenal glands, and abdominal aorta are normal. Kidneys enhance symmetrically, no hydronephrosis. There is a 2 mm nonobstructing left renal calculus. The stomach is unremarkable. There is no dilated small bowel. The appendix is not seen, no secondary signs of appendicitis. No colon wall thickening is identified. No abdominal adenopathy or free fluid. There are subcentimeter mesenteric lymph nodes. Uterus is anteverted. The urinary bladder is normal. There is a probable functional cyst of the right ovary. There is mild pelvic free fluid. Findings likely physiologic. No acute bone abnormality. IMPRESSION: 1. No acute abdominal or pelvic abnormality. 2. Mild pelvic free fluid. Probable small functional cyst of the right ovary. Findings likely physio logic. 3. Nonobstructing left renal calculus. Electronically signed by: Alfonzo Malin MD (12/04/2020 6:16 PM) [facility]
[2020-12-04 19:20] VITALS: BP 123/74
== END 2020-12-04 19:25 | disposition home or self-care (01) ==
LOC: ER 15:58
DX: R10.11 Right upper quadrant pain (principal); R10.12 Left upper quadrant pain; R10.13 Epigastric pain; Z87.440 Personal history of urinary (tract) infections; Z79.82 Long term (current) use of aspirin
CPT/HCPCS: 36415; 74018; 74177; 80048; 80076; 80307; 81001; 81025; 82550; 83690; 83735; 84484; 85025; 87086; 93005; 96361; 96374; 96375; 99285; C9113; J2060; J3490; J7030; Q9967

== ENCOUNTER 2021-07-17 16:42 | Emergency (ER) | payer OTHER ==
[~2021-07-17] VITALS: Ht 162.6 cm; Wt 106.3 kg
[~2021-07-17 16:42] MED LIST changes: -OMEP40CA45 PO; +OMEP40CA7 PO
[2021-07-17 16:56] VITALS: BP 148/85
--- NOTE | 2021-07-17 17:22 | PHYS DOC ---
Past History Past Medical History: Pneumonia, UTI, Other Additional Past Medical Histor: intracranial hypertension, anti KPB, gastritis (FAUSTINA ESCOTO APRN) Past Surgical History: , Other Additional Past Surgical Histo: brain stent- posterior veinous sinus (FAUSTINA ESCOTO APRN) Smoking: Non-smoker Alcohol Use: None Drug Use: None (FAUSTINA ESCOTO APRN) General Adult EDM: Chief Complaint: PELVIC PAIN HPI: HPI: Patient is a 30-year-old female who presents to the ER for right-sided pelvic pain that started on Friday. Patient describes the pain as a constant pain. She thought it was due to her ovulation as she was in her ovulation window with her last menstrual period being June 29. She states that this is increased pain compared to her normal ovulation pain. She states she has a history of PCOS. She is denies any dysuria but reports urinary frequency. She also denies vaginal discharge, bleeding, odor, concern for STIs or itching. (FAUSTINA ESCOTO APRN) Review of Systems: Review of Systems: 14 body systems of the review of systems have been reviewed. See HPI for pertinent positive and negative responses, otherwise all other systems are negative, nonpertinent or noncontributory (FAUSTINA ESCOTO APRN) Allergies: Allergies: Allergies Coded Allergies Type Severity Reaction Last Updated Verified No Known Drug Allergies 12/04/20 No (FAUSTINA ESCOTO APRN) Physical Exam: PE: Constitutional: Well developed, well nourished, no acute distress, non-toxic appearance. [] HENT: Normocephalic, atraumatic, bilateral external ears normal, oropharynx moist, no oral exudates, nose normal. [] Eyes: PERRL, EOMI, conjunctiva normal, no discharge. [] Neck: Normal range of motion, no tenderness, supple, no stridor. [] Cardiovascular:Heart rate regular rhythm, no murmur [] Lungs & Thorax: Bilateral breath sounds clear to auscultation [] Abdomen: Bowel sounds normal, soft, right-sided pelvic tenderness with palpation, no masses, no pulsatile masses. [] Skin: Warm, dry, no erythema, no rash. [] Back: No tenderness, no CVA tenderness. [] Extremities: No tenderness, no cyanosis, no clubbing, ROM intact, no edema. [] Neurologic: Alert and oriented X 3, normal motor function, normal sensory function, no focal deficits noted. [] Psychologic: Affect normal, judgement normal, mood normal. [] (FAUSTINA ESCOTO APRN) Current Patient Data: Labs: Laboratory Tests Test 07/17/21 16:50 07/17/21 17:17 Urine Collection Type Unknown Urine Color Yellow Urine Clarity Clear Urine pH 7.0 Urine Specific Institute 1.025 Urine Protein Neg Urine Glucose (UA) Neg mg/dL Urine Ketones (Stick) Neg mg/dL Urine Blood Neg Urine Nitrite Neg Urine Bilirubin Neg Urine Urobilinogen Dipstick 0.2 mg/dL Urine Leukocyte Esterase Trace Urine RBC 0 /HPF Urine WBC 1-4 /HPF Urine Squamous Epithelial Cells Few /LPF Urine Bacteria Few /HPF Urine Mucus Slight /LPF Bedside Urine HCG, Qualitative hcg negative Vital Signs: Vital Signs Date Time Temp Pulse Resp B/P (MAP) Pulse Ox O2 Delivery O2 Flow Rate FiO2 07/17/21 16:56 85 18 148/85 (106) 98 (FAUSTINA ESCOTO APRN) EKG: EKG: [] (FAUSTINA ESCOTO APRN) Radiology/Procedures: Radiology/Procedures: []PROCEDURE: PELVIS COMPLETE EXAM: ULTRASOUND PELVIS INDICATION: Right-sided pelvic pain. COMPARISON: CT abdomen/pelvis 12/04/2020; pelvic ultrasound 10/10/2019 TECHNIQUE: Transabdominal sonographic assessment of the pelvis. FINDINGS: The uterus is measured at 9.2 x 6.1 x 4.5 cm. Endometrial thickness of up to 1.2 cm. The right ovary measures 4 x 3.8 x 2.4 cm and the left ovary 2.5 x 2.1 x 1.9 cm. Unremarkable uterine parenchyma. No fluid along the endometrial canal. Doppler flow is maintained to both ovaries. No complex cyst or mass on either side. Small ovarian cyst/dominant follicle on the right measuring up to 1.9 cm. No free pelvic fluid. IMPRESSION: No sonographic abnormality throughout the pelvis to explain reported pain. There is only a small simple appearing right ovarian cyst/dominant follicle and Doppler flow is maintained to both ovaries. Within normal limits endometrial thickness considering patient age. No free pelvic fluid. Electronically signed by: ROBBY CORONADO MD (07/17/2021 5:46 PM) [facility] DICTATED AND SIGNED BY: ROBBY CORONADO MD DATE: 07/17/21 1744 CC: ABNER BIANCHI DO; FAUSTINA ESCOTO APRN ~MTH0 0 (FAUSTINA ESCOTO APRN) Heart Score: C/O Chest Pain: No Risk Factors: Risk Factors: DM, Current or recent (<one month) smoker, HTN, HLP, family history of CAD, obesity. Risk Scores: Score 0 - 3: 2.5% MACE over next 6 weeks - Discharge Home Score 4 - 6: 20.3% MACE over next 6 weeks - Admit for Clinical Observation Score 7 - 10: 72.7% MACE over next 6 weeks - Early Invasive Strategies (FAUSTINA ESCOTO APRN) Course & Med Decision Making: Course & Med Decision Making Pertinent Labs and Imaging studies reviewed. (See chart for details) [] Patient is a 30-year-old female being seen in the ER for right-sided pelvic pain. Urinalysis and test was performed that showed negative hCG, wet prep was negative. UA showed urinary tract infection with trace leuks, white blood cells and few bacteria. Patient will be treated with an antibiotic.. A pelvic exam was performed and gonorrhea chlamydia testing was performed also a wet prep was obtained. An ultrasound was performed that showed no acute fi ndings and good blood flow to both ovaries. Pelvic exam: closed os, mild right and left sided adnexa tenderness, thin yellow vaginal discharge, no odor noted, no CMT. patient advised to follow-up with her primary care provider regarding her ER visit. I discussed with patient all findings and diagnostic testing as well as the need to follow-up with PCP for further evaluation and treatment or return to the ER if any new or worsening symptoms. Strict return precautions were also discussed at length. Patient voiced understanding and agreement with the plan. Patient is hemodynamically stable at the time of disposition. (FAUSTINA ESCOTO APRN) Course & Med Decision Making Did not see or evaluate patient. Did not discuss patient with PIPE TESTER. Agree with PIPE TESTER's work-up and disposition per note. (ALBER COLLINS MD) Dragon Disclaimer: Dragon Disclaimer: This electronic medical record was generated, in whole or in part, using a voice recognition dictation system. (FAUSTINA ESCOTO APRN) Departure Departure: Impression: Primary Impression: Pelvic pain Disposition: HOME / SELF CARE / HOMELESS Condition: GOOD Referrals: ABNER BIANCHI DO (PCP) Patient Instructions: Ovarian Cyst Additional Instructions: You were seen in the ER today for right pelvic pain. Your urinalysis was positive for urinary tract infection and you will be treated with an antibiotic. Please start and finish this antibiotic completely. Please increase your fluids and avoid bladder irritants such as caffeine, alcohol or sugary be verages. Your pelvic ultrasound was negative for any acute findings but she did have a small cyst on your right ovary. You can take Tylenol or ibuprofen for your pain at home. Please follow-up with your DIRECTOR COMMUNICATIONS as needed. If you continue to have worsening of your pain, vaginal bleeding, intractable nausea or vomiting any new or worsening concerns please return to the ER. We tested you in the ER for gonorrhea and chlamydia and you will be notified of those results via telephone in 2 days when they become available. Please abstain from sexual intercourse until you receive these results. EMERGENCY DEPARTMENT GENERAL DISCHARGE INSTRUCTIONS Thank you for coming to [facility] (ED) today and trusting us with you care. We trust that you had a positivie experience in our Emergency Department. If you wish to speak to the department management, you may call the director at [phone]. YOUR FOLLOW UP INSTRUCTIONS ARE FOLLOWS: 1. Do you have a private Doctor? If you do not have a private doctor, please ask for a resource list of physicians or clinics that may be able to assist you with follow up care. 2. The Emergency Physician has interpreted your x-rays. The X-Ray specialist will also review them. If there is a change in the findings, you will be notified in 48 hours when at all possible. 3. A lab test or culture has been done, your results will be reviewed and you will be notified if you need a change in treatment. ADDITIONAL INSTRUCTIONS AND INFORMATION: 1. Your care today has been supervised by a physician who is specially trained in emergency care. Many problems require more than one evaluation for a complete diagnosis and treatment. We recommend that you schedule your follow up appointment as recommended to ensure complete treatment of you illness or injury. If you are unable to obtain follow up care and continue to have a problem, or if your condition worsens, we recommend that you return to the ED. 2. We are not able to safely determine your condition over the phone nor are we able to give sound medical advice over the phone. For these safety reasons, if you call for medical advice we will ask you to come to the ED for further evaluation. 3. If you have any questions regarding these discharge instructions please call the ED at [phone]. SAFETY INFORMATION: In the interest of safety, wellness, and injury prevention; we encourage you to wear your sealbelt, if you smoke; quite smoking, and we encourage family to use a protective helmet for bicycling and other sporting events that present an increased risk for head injury. IF YOUR SYMPTOMS WORSEN OR NEW SYMPTOMS DEVELOP, OR YOU HAVE CONCERNS ABOUT YOUR CONDITION; OR IF YOUR CONDITION WORSENS WHILE YOU ARE WAITING FOR YOUR FOLLOW UP APPOINTMENT; EITHER CONTACT YOUR PRIMARY CARE DOCTOR, THE PHYSICIAN WHOSE NAME AND NUMBER YOU WERE GIVEN, OR RETURN TO THE ED IMMEDIATELY. Scripts Cephalexin (CEPHALEXIN) 500 Mg Tablet 1 TAB PO BID for UTI for 5 Days, #10 TAB 0 Refills Prov: FAUSTINA ESCOTO APRN 07/17/21 FAUSTINA ESCOTO APRN Jul 17, 2021 17:22 ALBER COLLINS MD Jul 17, 2021 20:32
--- NOTE | 2021-07-17 17:49 | RAD ---
EXAM: ULTRASOUND PELVIS INDICATION: Right-sided pelvic pain. COMPARISON: CT abdomen/pelvis 12/04/2020; pelvic ultrasound 10/10/2019 TECHNIQUE: Transabdominal sonographic assessment of the pelvis. FINDINGS: The uterus is measured at 9.2 x 6.1 x 4.5 cm. Endometrial thickness of up to 1.2 cm. The right ovary measures 4 x 3.8 x 2.4 cm and the left ovary 2.5 x 2.1 x 1.9 cm. Unremarkable uterine parenchyma. No fluid along the endometrial canal. Doppler flow is maintained to both ovaries. No complex cyst or mass on either side. Small ovarian cys t/dominant follicle on the right measuring up to 1.9 cm. No free pelvic fluid. IMPRESSION: No sonographic abnormality throughout the pelvis to explain reported pain. There is only a small simp le appearing right ovarian cyst/dominant follicle and Doppler flow is maintained to both ovaries. Wit hin normal limits endometrial thickness considering patient age. No free pelvic fluid. Electronically signed by: ROBBY CORONADO MD (07/17/2021 5:46 PM) [facility]
[2021-07-17 17:57] LABS: COLOR,URINE YELLOW
[2021-07-17 17:58] LABS: BACTERIA,URINE FEW /HPF (0-FEW); BILIRUBIN,URINE NEG (NEG); CLARITY,URINE CLEAR; GLUCOSE,URINE NEG (NEG); NITRITE,URINE NEG (NEG); RBC,URINE 0 /HPF (0-2); SQUAMOUS EPITHELIAL CELL,UR FEW /LPF; UROBILINOGEN,URINE 0.2 mg/dL (0.2 mg/dL)
[2021-07-17] MEDS ORDERED: CEPH500T PO (19:05)
[2021-07-19 18:07] LABS: CHLAMYDIA PROBE Negative (Negative)
== END 2021-07-17 19:09 | disposition home or self-care (01) ==
LOC: ER 16:42
DX: R10.2 Pelvic and perineal pain (principal); Z87.440 Personal history of urinary (tract) infections; Z98.890 Other specified postprocedural states
CPT/HCPCS: 76856; 81001; 81025; 87086; 87491; 87591; 99284; Q0111

== ENCOUNTER 2021-08-20 16:53 | Emergency (ER) | payer OTHER ==
[~2021-08-20] VITALS: Ht 165.1 cm; Wt 107.0 kg
[~2021-08-20 16:53] MED LIST changes: +CEPH500T PO
--- NOTE | 2021-08-20 17:19 | PHYS DOC ---
Past History Past Medical History: Pneumonia, UTI, Other Additional Past Medical Histor: intracranial hypertension, anti KPB, gastritis Past Surgical History: , Other Additional Past Surgical Histo: brain stent- posterior veinous sinus Smoking: Non-smoker Alcohol Use: None Drug Use: None General Adult EDM: Chief Complaint: PELVIC PAIN HPI: HPI: Patient is a 31-year-old female who presents to the emergency department for right pelvic pain that started in June and has been intermittent. She was seen in this emergency department on July 17 and diagnosed with a urinary tract infection. She was noted at that time to have a 1.9 cm cyst on her right ovary. Patient reports that she went to the urgent care last week and they told her that the cyst may have increased in size and if it gets too big and she may need a blood transfusion. Patient states that gave her a panic attack and she has not been able to think about anything else other than maybe needing a blood transfusion and she goes on vacation and is afraid that something will happen while she is out of town. Patient reports that her last menstrual period was July 29. She denies any vaginal discharge, dysuria, urinary urgency, hematuria, vaginal bleeding, nausea, vomiting. Review of Systems: Review of Systems: GI: See HPI : See HPI Musculoskeletal: Denies flank pain Allergies: Allergies: Allergies Coded Allergies Type Severity Reaction Last Updated Verified No Known Drug Allergies 08/20/21 No Physical Exam: PE: Constitutional: Well developed, well nourished, no acute distress, non-toxic appearance. [] HENT: Normocephalic, atraumatic, bilateral external ears normal, oropharynx moist, no oral exudates, nose normal. [] Eyes: PERRL, EOMI, conjunctiva normal, no discharge. [] Neck: Normal range of motion, no stridor Cardiovascular:Heart rate regular rhythm, no murmur [] Lungs & Thorax: Bilateral breath sounds clear to auscultation [] Abdomen: Bowel sounds normal, soft, no tenderness, obese, no masses, no pulsatile masses. [] Skin: Warm, dry, no erythema, no rash. [] Back: No tenderness, no CVA tenderness. [] Extremities: No tenderness, no cyanosis, no clubbing, ROM intact, no edema. [] Neurologic: Alert and oriented X 3, normal motor function, normal sensory function, no focal deficits noted. [] Psychologic: Affect normal, judgement normal, mood normal. [] Current Patient Data: Vital Signs: Vital Signs Date Time Temp Pulse Resp B/P (MAP) Pulse Ox O2 Delivery O2 Flow Rate FiO2 08/20/21 17:09 98.0 88 18 135/80 (98) 98 Room Air EKG: EKG: [] Radiology/Procedures: Radiology/Procedures: []PROCEDURE: US PELVIS W/TV EXAMINATION: US PELVIS W/TV INDICATION: 31 years, Female, right pelvic pain, history of section. COMPARISON: 07/17/2021 TECHNIQUE: Trans abdominal and transvaginal ultrasound of the pelvis was performed with grayscale, spectral, and color doppler imaging. FINDINGS: UTERUS: Position: Anteverted. Measures: 9.3 x 6.8 x 4.0 cm. Uterine/Endometrial Morphology: Unremarkable. Endometrial Thickness: 9.2 mm, normal. RIGHT OVARY/ADNEXA: Measures: 2.8 x 2.0 x 2.2 cm. Right Ovarian Morphology: Follicular changes. Right Ovarian Color And Spectral Doppler Flow: Normal. LEFT OVARY/ADNEXA: Measures: 3.6 x 2.8 x 2.3 cm. Left Ovarian Morphology: There is a 1.8 cm corpus luteal cyst. Left Ovarian Color And Spectral Doppler Flow: Normal. OTHER: Fluid/Cul-De-Sac: Trace amount of pelvic free fluid, likely physiologic. Prominent bilateral parauterine vessels. IMPRESSION: 1. No acute sonographic findings in the pelvis. 2. Prominent bilateral parauterine vessels, nonspecific findings and can be seen in pelvic congestion syndrome in appropriate clinical setting. Electronically signed by: Viraj Corral MD (08/20/2021 6:05 PM) [facility] DICTATED AND SIGNED BY: VIRAJ CORRAL MD DATE: 08/20/21 1800 CC: ABNER BIANCHI DO; FAUSTINA ESCOTO INFORMATION TECH ~MTH0 0 Heart Score: C/O Chest Pain: N/A Risk Factors: Risk Factors: DM, Current or recent (<one month) smoker, HTN, HLP, family history of CAD, obesity. Risk Scores: Score 0 - 3: 2.5% MACE over next 6 weeks - Discharge Home Score 4 - 6: 20.3% MACE over next 6 weeks - Admit for Clinical Observation Score 7 - 10: 72.7% MACE over next 6 weeks - Early Invasive Strategies Course & Med Decision Making: Course & Med Decision Making Pertinent Labs and Imaging studies reviewed. (See chart for details) Patient presents to the emergency department for right-sided pelvic pain. A urinalysis was performed that showed no acute findings. A pelvic ultrasound was performed as patient has a history of a right ovarian cyst. The ultrasound showed no acute findings but did show pelvic congestive syndrome. Patient given education regarding this finding. Advised to follow-up with her primary care provider-given GYROSCOPIC INSTRUMENT MECHANIC follow-up.. Advised to take Tylenol and/or Ibuprofen for pain at home. I discussed with patient all findings and diagnostic testing as well as the need to follow-up with PCP for further evaluation and treatment or return to the ER if any new or worsening symptoms. Strict return precautions were also discussed at length. Patient voiced understanding and agreement with the plan. Patient is hemodynamically stable at the time of disposition. Dragon Disclaimer: DragMusic Messenger (MM) Disclaimer: This electronic medical record was generated, in whole or in part, using a voice recognition dictation system. Departure Departure: Impression: Primary Impression: Pelvic pain Disposition: HOME / SELF CARE / HOMELESS Condition: GOOD Referrals: ABNER BIANCHI DO (PCP) WILL CANSECO MD Patient Instructions: Pelvic Pain, Female Additional Instructions: You were seen in the emergency department for right-sided pelvic pain. Your urinalysis showed no acute findings. Your ultrasound did show that you had a cyst on your left ovary that is 1.8 cm however the cyst that was on your right ovary is no longer there. The radiologist read your ultrasound as having dilated veins in your pelvis which may indicate pelvic congestive syndrome which is a condition that causes chronic pelvic pain. This should be evaluated by a GYROSCOPIC INSTRUMENT MECHANIC but is very common. I would advise you to follow-up with an GYROSCOPIC INSTRUMENT MECHANIC regarding this issue. You were given a referral to Dr. Canseco who is the GYROSCOPIC INSTRUMENT MECHANIC at [facility] but if you already have an GYROSCOPIC INSTRUMENT MECHANIC you can follow-up with them. You can take Tylenol and/or ibuprofen for your pain. Return to the emergency department if you develop worsening of your pain, intractable nausea or vomiting, high fevers refractory to treatment, severe vaginal bleeding. FAUSTINA ESCOTO INFORMATION TECH Aug 20, 2021 17:19
--- NOTE | 2021-08-20 18:07 | RAD ---
EXAMINATION: US PELVIS W/TV INDICATION: 31 years, Female, right pelvic pain, history of section. COMPARISON: 07/17/2021 TECHNIQUE: Trans abdominal and transvaginal ultrasound of the pelvis was performed with grayscale, sp ectral, and color doppler imaging. FINDINGS: UTERUS: Position: Anteverted. Measures: 9.3 x 6.8 x 4.0 cm. Uterine/Endometrial Morphology: Unremarkable. Endometrial Thickness: 9.2 mm, normal. RIGHT OVARY/ADNEXA: Measures: 2.8 x 2.0 x 2.2 cm. Right Ovarian Morphology: Follicular changes. Right Ovarian Color And Spectral Doppler Flow: Normal. LEFT OVARY/ADNEXA: Measures: 3.6 x 2.8 x 2.3 cm. Left Ovarian Morphology: There is a 1.8 cm corpus luteal cyst. Left Ovarian Color And Spectral Doppler Flow: Normal. OTHER: Fluid/Cul-De-Sac: Trace amount of pelvic free fluid, likely physiologic. Prominent bilateral parauter ine vessels. IMPRESSION: 1. No acute sonographic findings in the pelvis. 2. Prominent bilateral parauterine vessels, nonspecific findings and can be seen in pelvic congestion syndrome in appropriate clinical setting. Electronically signed by: Annemarie Corral MD (08/20/2021 6:05 PM) [facility]
[2021-08-20 18:25] LABS: BACTERIA,URINE 0 /HPF (0-FEW); BILIRUBIN,URINE NEG (NEG); CLARITY,URINE CLEAR; COLOR,URINE YELLOW; GLUCOSE,URINE NEG (NEG); NITRITE,URINE NEG (NEG); RBC,URINE 0 /HPF (0-2); SQUAMOUS EPITHELIAL CELL,UR FEW /LPF; UROBILINOGEN,URINE 0.2 mg/dL (0.2 mg/dL); WBC,URINE 0 /HPF (0-4)
[2021-08-20 18:36] VITALS: BP 147/89
== END 2021-08-20 18:37 | disposition home or self-care (01) ==
LOC: ER 16:53
DX: R10.2 Pelvic and perineal pain (principal); I10 Essential (primary) hypertension; Z87.440 Personal history of urinary (tract) infections; Z98.890 Other specified postprocedural states
CPT/HCPCS: 76830; 76856; 81001; 81025; 87086; 99284

== ENCOUNTER 2022-02-07 07:09 | Emergency (ER) | payer OTHER ==
[~2022-02-07] VITALS: Ht 165.1 cm; Wt 107.0 kg
[2022-02-07 07:20] VITALS: BP 130/81
--- NOTE | 2022-02-07 07:43 | PHYS DOC ---
Past History Past Medical History: Pneumonia, UTI, Other Additional Past Medical Histor: intracranial hypertension, anti KPB, gastritis Past Surgical History: , Other Additional Past Surgical Histo: brain stent- posterior veinous sinus Smoking: Non-smoker Alcohol Use: None Drug Use: None General Adult EDM: Chief Complaint: BLOOD IN URINE HPI: HPI: 31-year-old female presents with hematuria. The patient noticed last night when she urinated she had bright red blood on her toilet paper. She has had a couple other episodes of blood on her toilet paper after urination since. She has isolated the location of the blood to be nearly at the urethra. She denies rectal bleeding. It is painless. Her urine does not look bloody or dark in color. She denies fever or chills. She is not on her menstrual cycle. She has not had been sexually active in the last week. She denies any change in vaginal discharge. Review of Systems: Review of Systems: Constitutional: Denies fever or chills Eyes: Denies change in visual acuity HENT: Denies nasal congestion or sore throat Respiratory: Denies cough or shortness of breath Cardiovascular: Denies chest pain or edema GI: Denies abdominal pain, nausea, vomiting, bloody stools or diarrhea : Hematuria Musculoskeletal: Denies back pain or joint pain Integument: Denies rash Neurologic: Denies headache, focal weakness or sensory changes Endocrine: Denies polyuria or polydipsia Lymphatic: Denies swollen glands Psychiatric: Denies depression or anxiety Allergies: Allergies: Allergies Coded Allergies Type Severity Reaction Last Updated Verified No Known Drug Allergies 08/20/21 No Physical Exam: PE: Constitutional: Well developed, well nourished, morbidly obese, no acute distress, non-toxic appearance. [] HENT: Normocephalic, atraumatic, bilateral external ears normal, oropharynx moist, no oral exudates, nose normal. [] Eyes: PERRLA, EOMI, conjunctiva normal, no discharge. [] Neck: Normal range of motion, no tenderness, supple, no stridor. [] Cardiovascular: Heart rate regular rhythm, no murmur [] Lungs & Thorax: Bilateral breath sounds clear to auscultation [] Abdomen: Bowel sounds normal, soft, no tenderness, no masses, no pulsatile masses. [] Skin: Warm, dry, no erythema, no rash. [] Back: No tenderness, no CVA tenderness. [] Extremities: No tenderness, no cyanosis, no clubbing, ROM intact, no edema. [] Neurologic: Alert and oriented X 3, normal motor function, normal sensory function, no focal deficits noted. [] Psychologic: Affect normal, judgement normal, mood anxious. [] Current Patient Data: Vital Signs: Vital Signs Date Time Temp Pulse Resp B/P (MAP) Pulse Ox O2 Delivery O2 Flow Rate FiO2 02/07/22 07:20 97.9 78 18 130/81 (97) 99 Room Air EKG: EKG: [] Radiology/Procedures: Radiology/Procedures: [] Heart Score: C/O Chest Pain: N/A Risk Factors: Risk Factors: DM, Current or recent (<one month) smoker, HTN, HLP, family history of CAD, obesity. Risk Scores: Score 0 - 3: 2.5% MACE over next 6 weeks - Discharge Home Score 4 - 6: 20.3% MACE over next 6 weeks - Admit for Clinical Observation Score 7 - 10: 72.7% MACE over next 6 weeks - Early Invasive Strategies Course & Med Decision Making: Course & Med Decision Making Pertinent Labs and Imaging studies reviewed. (See chart for details) The patient's urinalysis does have trace of blood. It is also positive for yeast. She appears to have a yeast UTI. I will treat her with Diflucan for 14 days. She is stable for discharge at this time. [] Dragon Disclaimer: Dragpamela Disclaimer: This electronic medical record was generated, in whole or in part, using a voice recognition dictation system. Departure Departure: Impression: Primary Impression: Yeast UTI Disposition: HOME / SELF CARE / HOMELESS Condition: STABLE Referrals: ABNER BIANCHI DO (PCP) Patient Instructions: Urinary Tract Infection, [id number] Scripts Fluconazole (DIFLUCAN) 200 Mg Tablet 1 TAB PO DAILY for UTI for 14 Days, #14 TAB Prov: OMAR JOHNSON DO 02/07/22 OMAR JOHNSON DO Feb 07, 2022 07:43
[2022-02-07 08:09] LABS: BACTERIA,URINE 0 /HPF (0-FEW); CLARITY,URINE HAZY; COLOR,URINE YELLOW; GLUCOSE,URINE NEG (NEG); NITRITE,URINE NEG (NEG); SQUAMOUS EPITHELIAL CELL,UR MOD /LPF; UROBILINOGEN,URINE 0.2 mg/dL (0.2 mg/dL); YEAST,URINE PRESENT /HPF
[2022-02-07] MEDS ORDERED: FLUC200T PO (08:31)
== END 2022-02-07 08:36 | disposition home or self-care (01) ==
LOC: ER 07:09
DX: B37.49 Other urogenital candidiasis (principal); Z87.440 Personal history of urinary (tract) infections; Z98.890 Other specified postprocedural states
CPT/HCPCS: 81001; 99283